=== PATIENT | female | born 1960 | race Caucasian/White ===

== ENCOUNTER 2017-02-13 18:45 | Emergency (ER) | payer MEDICAID ==
[~2017-02-13] VITALS: Ht 149.9 cm; Wt 80.1 kg
[2017-02-13 18:47] VITALS: BP 128/99
[2017-02-13] MEDS ORDERED: PHENAZOPYRIDINE 200 MG TABLET ONE (19:05)
[2017-02-13 19:07] LABS: HCG UR LOT HCG7060132
[2017-02-13 19:22] LABS: HCG UR OBC PASS
[2017-02-13] MEDS ORDERED: PHENAZOPYRIDINE 200 MG TABLET PO ONE (19:30)
[2017-02-13] MEDS ORDERED: LIDOCAINE 1%, 10ML ONE (19:36)
[2017-02-13] MEDS ORDERED: CEFTRIAXONE 1,000 MG ONE (19:37)
[2017-02-13] MEDS ORDERED: CEFTRIAXONE 1,000 MG IM ONE (20:00)
== END 2017-02-13 20:35 | disposition home or self-care (01) ==
LOC: ED 20:00
DX: N30.01 Acute cystitis with hematuria (principal)
CPT/HCPCS: 81001; 81025; 87077; 87086; 87186; 96372; 99284; J0696